=== PATIENT | female | born 1965 | race Caucasian/White ===

== ENCOUNTER 2017-05-28 11:05 | Day surgery (SDC) | payer OTHER ==
[~2017-05-28] VITALS: Ht 170.2 cm; Wt 116.2 kg
[~2017-05-28 11:05] MED LIST: ALBU90OI6; ALBU90OI61 INH; ANTI ANXIETY MED; BENZ100A PO; BISA5EC PO; CALCIUM WITH VIT D; CEFD300 PO; CLAR500 PO; CLIN300 PO; CLON.1 PO; CLON.2 PO; CODGUAEL PO; CONEST1.25 PO; CYCL10 PO; DIAZ5 PO; DOCU100 PO; DOXY100 PO; DULO30 PO; DULO60 PO; FEBU40TA PO; FERR325 PO; FISH1000 PO; FURO20 PO; FURO40 PO; GABA300 PO; GABA600 PO; GUAI600T33 PO; HYDACE5 PO; HYDGUAL120 PO; HYDPAM25; Hair, Skin & N1 EACH PO; IBUP800; IBUP800 PO; LEVFLO500 PO; LEVO750 PO; LORA2 PO; MAGNESIUM PO; METF500 PO; METO5 PO; METO5A; NAPR550 PO; NIAC500 PO; OXYACE5T PO; OXYB5 PO; OXYC10TA19 PO; OXYC5 PO; PARO20; POTA10T PO; POTCHL20ER PO; PRED20 PO; PSEU120ER PO; RANI150 PO; RXHYDACE PO; RXLORA1 PO; RXNAPNA550 PO; RXTRAM50 PO; SPACER IH; SPIR25 PO; TRAZ100 PO; TRAZ150T57 PO; VERA120ER; VERA240ER PO; VERA240ERA PO; VERA240ERB; VERA240ERB PO; [UNRECOGNIZED DRUG - OTHER]
== END 2017-05-28 12:58 | disposition home or self-care (01) ==
LOC: ORSCSDS 11:05
PROVIDERS: Anesthesiology
PROC: 3E0R33Z Introduction of Anti-inflammatory into Spinal Canal, Percutaneous Approach (ICD-10-PCS; principal; 2017-05-28 12:30)
DX: M96.1 Postlaminectomy syndrome, not elsewhere classified (principal); M54.16 Radiculopathy, lumbar region; G47.33 Obstructive sleep apnea (adult) (pediatric); I10 Essential (primary) hypertension; K21.9 Gastro-esophageal reflux disease without esophagitis; F41.9 Anxiety disorder, unspecified; J45.909 Unspecified asthma, uncomplicated; E78.00 Pure hypercholesterolemia, unspecified; E66.01 Morbid (severe) obesity due to excess calories; Z68.41 Body mass index [BMI] 40.0-44.9, adult; Z79.899 Other long term (current) drug therapy
CPT/HCPCS: J1040

== ENCOUNTER → 2019-04-13 | Outpatient (CLI) | payer OTHER ==
[2019-04-13 18:38] LABS: Albumin, Blood 3.8 g/dL (3.4-5.0); Anion Gap 11 mmol/L (6-16); Blood Urea Nitrogen 20 mg/dL (8-24); Bun/Creatinine Ratio 18.9 (12.0-20.0); CO2, Blood 26 mmol/L (21-32); Calcium, Blood 9.6 mg/dL (8.5-10.1); Chloride, Blood 105 mmol/L (98-108); Creatinine, Blood 1.06 mg/dL (0.40-1.00); Glomerular Filtration Rate 54 (60-); Glucose, Blood 84 mg/dL (70-99); Phosphorus, Blood 3.5 mg/dL (2.5-4.9); Potassium, Blood 3.9 mmol/L (3.5-5.5); Sodium, Blood 142 mmol/L (136-145)
== END | disposition home or self-care (01) ==
LOC: LAB SHORT 18:20 → LAB EV 18:20
PROVIDERS: Internal Medicine Nephrology
DX: E11.22 Type 2 diabetes mellitus with diabetic chronic kidney disease (principal); N18.3 Chronic kidney disease, stage 3 (moderate); D63.1 Anemia in chronic kidney disease; E11.21 Type 2 diabetes mellitus with diabetic nephropathy; N25.81 Secondary hyperparathyroidism of renal origin; E55.9 Vitamin D deficiency, unspecified; E78.00 Pure hypercholesterolemia, unspecified; R80.9 Proteinuria, unspecified
CPT/HCPCS: 36415; 80069; 85018

== ENCOUNTER → 2019-04-21 | Outpatient (CLI) | payer OTHER ==
[2019-04-21 21:35] LABS: Protein, Urine Quantitative 9.3 mg/dL (0.0-11.9)
[2019-04-21 21:38] LABS: Microalbumin, Urine Quant. 14.1 mg/L (0.000-20.000)
== END | disposition home or self-care (01) ==
LOC: LAB 15:22 → LAB SHORT 15:22
PROVIDERS: Internal Medicine Nephrology
DX: E11.22 Type 2 diabetes mellitus with diabetic chronic kidney disease (principal); N18.3 Chronic kidney disease, stage 3 (moderate); D63.1 Anemia in chronic kidney disease; D75.1 Secondary polycythemia; R80.9 Proteinuria, unspecified; E11.21 Type 2 diabetes mellitus with diabetic nephropathy; N25.81 Secondary hyperparathyroidism of renal origin; E55.9 Vitamin D deficiency, unspecified; E78.00 Pure hypercholesterolemia, unspecified
CPT/HCPCS: 81050; 82043; 82570; 84156

== ENCOUNTER → 2020-01-28 | Outpatient (CLI) | payer OTHER ==
[2020-01-28 19:16] LABS: Creatinine Urine 92.9 mg/dL (27.00-270.00); Protein, Urine Quantitative 5.3 mg/dL (0.0-11.9)
[2020-01-28 19:19] LABS: Microalbumin, Urine Quant. 6.41 mg/L (0.000-20.000)
== END | disposition home or self-care (01) ==
LOC: LAB 16:17 → LAB SHORT 16:17
PROVIDERS: Internal Medicine Nephrology
DX: N18.30 Chronic kidney disease, stage 3 unspecified (principal); D63.1 Anemia in chronic kidney disease; N25.81 Secondary hyperparathyroidism of renal origin; E55.9 Vitamin D deficiency, unspecified; E78.00 Pure hypercholesterolemia, unspecified; R76.9 Abnormal immunological finding in serum, unspecified; R94.5 Abnormal results of liver function studies; R94.6 Abnormal results of thyroid function studies
CPT/HCPCS: 81050; 82043; 82570; 84156

== ENCOUNTER 2020-09-03 13:41 | Inpatient (IN) | payer OTHER ==
[~2020-09-03] VITALS: Ht 170.2 cm; Wt 118.8 kg
[2020-09-03 14:26] LABS: BASOPHILS ABSOLUTE AUTO 0.04 K/mm3 (0.00-0.23); BASOPHILS PERCENT AUTO 0 % (0-2); EOSINOPHILS PERCENT AUTO 0 % (0-6); Hemoglobin 19.9 g/dL (11.5-16.0); IMMATURE GRAN ABSOLUTE AUTO 0.37 K/mm3 (0.00-0.10); IMMATURE GRAN PERCENT AUTO 2 % (0-1); LYMPHOCYTES ABSOLUTE AUTO 1.52 K/mm3 (0.84-5.20); LYMPHOCYTES PERCENT AUTO 6 % (21-46); MONOCYTES ABSOLUTE AUTO 1.67 K/mm3 (0.16-1.47); MONOCYTES PERCENT AUTO 7 % (4-13); Mean Corpuscular HGB 29.6 pg (26.0-34.0); Mean Corpuscular HGB Conc 35.2 g/dL (31.5-36.5); Mean Corpuscular Volume 84 fL (80-100); Mean Platelet Volume 9.3 fL (9.1-12.4); NEUTROPHILS ABSOLUTE AUTO 21.83 K/mm3 (1.96-9.15); NEUTROPHILS PERCENT AUTO 86 % (41-73); Platelet Count 394 K/mm3 (150-400); RDW Coefficient Variation 12.5 % (11.7-14.2); RDW Standard Deviation 38.1 fL (35.1-46.3); Red Blood Cell Count 6.72 M/mm3 (3.80-5.20); White Blood Cell Count 25.43 K/mm3 (4.00-11.30)
[2020-09-03 14:29] LABS: Hematocrit 56.6 % (33.0-51.0)
[2020-09-03 14:47] LABS: Albumin, Blood 3.7 g/dL (3.4-5.0); Albumin/Globulin Ratio 0.8 (0.8-1.8); Bilirubin, Total 1.1 mg/dL (0.1-1.0); Bun/Creatinine Ratio 26.8 (12.0-20.0); Creatinine, Blood 1.79 mg/dL (0.40-1.00); Globulin, Blood 4.9 g/dL (2.2-4.0); Potassium, Blood 4.2 mmol/L (3.5-5.5); Total Protein, Blood 8.6 g/dL (6.4-8.2)
[2020-09-03 14:48] LABS: BAND PERCENT MAN 2 % (0-8); BASOPHILS PERCENT MAN 0 % (0-2); EOSINOPHILS PERCENT MAN 0 % (0-6); LYMPHOCYTES ABSOLUTE MAN 1.01 K/mm3 (0.84-5.20); LYMPHOCYTES PERCENT MAN 4 % (21-46); MONOCYTES ABSOLUTE MAN 2.28 K/mm3 (0.16-1.47); MONOCYTES PERCENT MAN 9 % (4-13); NEUTROPHILS ABSOLUTE MAN 22.12 K/mm3 (1.96-9.15); SEG NEUTROPHILS PERCENT MAN 85 % (41-73); TOTAL CELLS COUNTED 100
[2020-09-03] MEDS ORDERED: LISI5 PO (15:59)
[2020-09-03] MEDS ORDERED: CALAN120 MG PO (16:00)
[2020-09-03] MEDS ORDERED: FEBUXOSTAT80 MG PO (16:00)
[2020-09-03] MEDS ORDERED: FUROSEMIDE20 MG PO (16:01)
[2020-09-03] MEDS ORDERED: PREGABALIN50 MG PO (16:01)
[2020-09-03 16:07] LABS: Source, Urine Clean Catch
[2020-09-03 16:11] LABS: Appearance, Urine Cloudy (Clear); Blood, Urine 4+ (Neg); Color, Urine Amber (P-Yellow); Glucose Qualitative, Urine Neg (Neg); Ketones, Urine 1+ (Neg); Leukocyte Esterase, Urine 1+ (Neg); Nitrite, Urine Neg (Neg); Protein, Urine 4+ (Neg); Urobilinogen, Urine 2+ (Normal)
[2020-09-03 16:17] LABS: Bilirubin, Urine 1+ (Neg)
[2020-09-03 16:20] LABS: Amorphous Heavy (0-Heavy)
[2020-09-03 16:21] LABS: Bacteria Few /hpf; Squamous Epithelial Cells Few /hpf (Few); Transitional Epithelial Cells Few /hpf (0-Rare)
--- NOTE | 2020-09-03 18:00 | NUR ---
Pt arrived to room. Dr. Rome in for surgical consult. Suction to low intermediate, draining clear yellow with moderate sediment. Dr instructs staff for water flushes to NG if sediment clogs the line. Pain level 10/10 prior to dilaudid 1mg dose; 1-2/10 on reassessment. No other complaints, daughter at bedside. Report given to eveline Donis RN.
[2020-09-03] MEDS ORDERED: FISH OIL 1,2001 EAC7 PO (19:50)
[2020-09-03] MEDS ORDERED: LORA10ER PO (19:57)
--- NOTE | 2020-09-03 20:35 | NUR ---
DR Michelle Rome called & requests covid 19 test, tele monitoring & repeat vital signs. DR Laboy had been in to see PT about SBO & PT had NG tube placed in ER. Placement was checked in ER with xray. Repeating vital signs now, ordered tele monitoring. NG has vent out & to low intermittant suction. Draining large amts of brown liquid with occasional thick clumps requiring flush to maintain patency. on 3rd cannister due to large amt of drainage. Alert & talkative. BP elevated 99.6 temp. PT had elevated troponin in ER & critical lactic acid of 3 , repeat troponin & lactic acid drawn. PT has hx of adhesion surgery, LAWRENCE on CPAP hyster & csection x 3 . DRawing covid 19 test now, DTR at bedside supportive. PT NPO
[2020-09-03 22:05] LABS: SARS-Cov-2 (COVID-19) PCR, MMC NEGATIVE (NEGATIVE)
[2020-09-04 04:34] LABS: BASOPHILS ABSOLUTE AUTO 0.02 K/mm3 (0.00-0.23); BASOPHILS PERCENT AUTO 0 % (0-2); EOSINOPHILS PERCENT AUTO 0 % (0-6); Hematocrit 47.9 % (33.0-51.0); Hemoglobin 16.7 g/dL (11.5-16.0); IMMATURE GRAN ABSOLUTE AUTO 0.07 K/mm3 (0.00-0.10); IMMATURE GRAN PERCENT AUTO 0 % (0-1); LYMPHOCYTES ABSOLUTE AUTO 1.52 K/mm3 (0.84-5.20); LYMPHOCYTES PERCENT AUTO 10 % (21-46); MONOCYTES ABSOLUTE AUTO 1.49 K/mm3 (0.16-1.47); MONOCYTES PERCENT AUTO 9 % (4-13); Mean Corpuscular HGB 29.9 pg (26.0-34.0); Mean Corpuscular HGB Conc 34.9 g/dL (31.5-36.5); Mean Corpuscular Volume 86 fL (80-100); Mean Platelet Volume 9.2 fL (9.1-12.4); NEUTROPHILS ABSOLUTE AUTO 12.71 K/mm3 (1.96-9.15); NEUTROPHILS PERCENT AUTO 81 % (41-73); Platelet Count 261 K/mm3 (150-400); RDW Coefficient Variation 12.7 % (11.7-14.2); RDW Standard Deviation 39.3 fL (35.1-46.3); Red Blood Cell Count 5.58 M/mm3 (3.80-5.20); White Blood Cell Count 15.81 K/mm3 (4.00-11.30)
[2020-09-04 04:57] LABS: Bun/Creatinine Ratio 28.6 (12.0-20.0); Calcium, Blood 8.9 mg/dL (8.5-10.1); Creatinine, Blood 1.61 mg/dL (0.40-1.00); Magnesium, Blood 2.1 mg/dL (1.6-2.4); Potassium, Blood 4.3 mmol/L (3.5-5.5); Troponin I 0.208 ng/mL (0.000-0.040)
--- NOTE | 2020-09-04 18:20 | NUR ---
SUMMARY PT RESTING IN BED WATCHING TV, DAUGHTER HAS BEEN AT THE BEDSIDE T/O THE DAY, SHE IS THE CAREGIVER AND SHE DOES ASSIST IN THE PT'S CARE, PT MED PER EMAR FOR PAIN AND NAUSEA, NG REMAINS TO LIS, DR ROBLES CAME TO SEE THE PT AND DOES NOT HAVE PLANS FOR SURGERY AT THIS TIME, PT UP TO THE COMMODE WITH 1P ASSIST, VSS, WILL CONTINUE TO MONITOR
--- NOTE | 2020-09-05 05:47 | NUR ---
PT continues with ng tube unvented per MD order npo except few ice chips. Medicated several times for abd pain & nausea with good effect. had to flush ng tube multiple times for thick brown gi contents. Hypertensive prn med given several times with prn iv med with mild helpful effect. DTR Ira continues at bedside due to PT needs caregiver assist with ADLS & communication.
--- NOTE | 2020-09-05 16:50 | NUR ---
Update 09/05/20 0106: Per chart review, no significant changes in condition. Pt. has NG tube in place and is NPO. No plan in place for discharge at this time.
--- NOTE | 2020-09-05 22:32 | NUR ---
DR COSTELLO called about no small bowell follow through results yet & the xray dept had said 1 view in AM required. Keep PT NG tube clamped due to contrast for SB follow through. PT was hypertensive has PRN rx to treat which was effective but he orders sq heparin & metoperol scheduled IV for hypertension. NG clamped , kpad & morphine 2 mg iv helpful for abd pain & compazine helpful for nausea. DTR at bedside aware PT may have lap exploratory due to lack of bowel function return. no growth on UA yet , has recieved rocephin IV x 2 days. Continues on IV fluids at 130 ml hr.
[2020-09-06 04:54] LABS: BASOPHILS ABSOLUTE AUTO 0.01 K/mm3 (0.00-0.23); BASOPHILS PERCENT AUTO 0 % (0-2); EOSINOPHILS PERCENT AUTO 0 % (0-6); Hematocrit 44.1 % (33.0-51.0); Hemoglobin 15.3 g/dL (11.5-16.0); IMMATURE GRAN ABSOLUTE AUTO 0.05 K/mm3 (0.00-0.10); IMMATURE GRAN PERCENT AUTO 1 % (0-1); LYMPHOCYTES ABSOLUTE AUTO 1.14 K/mm3 (0.84-5.20); LYMPHOCYTES PERCENT AUTO 13 % (21-46); MONOCYTES ABSOLUTE AUTO 0.79 K/mm3 (0.16-1.47); MONOCYTES PERCENT AUTO 9 % (4-13); Mean Corpuscular HGB 29.9 pg (26.0-34.0); Mean Corpuscular HGB Conc 34.7 g/dL (31.5-36.5); Mean Corpuscular Volume 86 fL (80-100); Mean Platelet Volume 9.3 fL (9.1-12.4); NEUTROPHILS ABSOLUTE AUTO 6.99 K/mm3 (1.96-9.15); NEUTROPHILS PERCENT AUTO 78 % (41-73); Platelet Count 242 K/mm3 (150-400); RDW Coefficient Variation 12.1 % (11.7-14.2); RDW Standard Deviation 38.5 fL (35.1-46.3); Red Blood Cell Count 5.11 M/mm3 (3.80-5.20); White Blood Cell Count 8.98 K/mm3 (4.00-11.30)
[2020-09-06 05:18] LABS: Albumin, Blood 2.8 g/dL (3.4-5.0); Albumin/Globulin Ratio 0.8 (0.8-1.8); Bilirubin, Total 0.7 mg/dL (0.1-1.0); Bun/Creatinine Ratio 25.2 (12.0-20.0); Calcium, Blood 8.5 mg/dL (8.5-10.1); Creatinine, Blood 1.11 mg/dL (0.40-1.00); Globulin, Blood 3.6 g/dL (2.2-4.0); Potassium, Blood 3.7 mmol/L (3.5-5.5); Total Protein, Blood 6.4 g/dL (6.4-8.2)
--- NOTE | 2020-09-06 06:45 | NUR ---
PT had 3 bowel movements large this AM. Off to xray SBFT. She has hypertension . PRN rx given & has scheduled antihypertensive. Ng continues clamped
--- NOTE | 2020-09-06 09:56 | NUR ---
DISCUSSED HTN WITH DR FLORES., HE TO ADJUST TO PO MEDS WHEN MARCUS LIQUID WELL. GIVE 20 MG HYDRALAZINE NOW.
--- NOTE | 2020-09-06 18:33 | NUR ---
PT HAD SEVERAL BM TODAY. DR OWENS NG REMOVED. DONE. PT MUCH PLEASED. [id number] IN ROOM FULL DAY TO ASSIST. PT AMBULATING TO BATHROOM WITH ASSISTANCE. STATES NAUSEA MUCH IMPROVED. ONLY GIVEN ZOFRAN ONCE TODAY. EATING CLEAR LIQUID DIET TODAY. NO NEW CONCERNS NOTED TODAY. BED IN LOW POSITION, CALL LITE IN REACH, CALLS APPROP
--- NOTE | 2020-09-07 06:33 | NUR ---
SHIFT SUMMARY A/O, ABLE TO MAKE NEEDS KNOWN. COOPERATIVE WITH CARE. CALLS AND ANSWERS QUESTIONS APPROPRIATELY. C/O PAIN/DISCOMFORT X1 TO ABDOMEN; MEDICATED PER EMAR. BP MORE CONTROLLED; HOWEVER HR INTO LOW 50s THIS AM. REMAINS ON TELE; WITH NO ACUTE EVENTS OVERNIGHT. CONTINUES TO TOLERATE CLEARS WELL. APPEARED TO REST WELL OVERNIGHT. DAUGHTER AT BEDSIDE. NO ACUTE CHANGES OVERNIGHT. BED REMAINS IN LOWEST POSITION. CALL LIGHT AND BELONGINGS WITHIN REACH. REPORT TO ONCOMING RN.
--- NOTE | 2020-09-07 16:28 | NUR ---
Update 09/07/20: Per chart review with Dr. Thakkar, pt. continues to improve. Very pleasant visit this afternoon with pt. and her daughter. Pt. has a strong support system at home with daughters. is disabled and their daughters are the primary care givers to both of them. Pt. in good spirits. Feeling much better and excited to continue to transition towards solid foods. We reviewed discharge plan including safety plan at home. Pt. denied any barriers to care at this time. Scheduled pt. with PCP 09/19/20 at 4:20 pm. Date noted on discharge letter. Pt. is likely to discharge within the next 24-48 hours. She was happy to prepare in anticipation. No further concerns. Update 09/06/20: Per chart review, patient's condition has improved. NG tube removed and BM x 3 noted. Clear liquid diet ordered. Discharge is likely within the next 48 hours.
--- NOTE | 2020-09-07 19:13 | NUR ---
PT DIET ADVANCED BY DR ROBLES TO FULL LIQUID AND ADAT. PT TOLERATED FULL LIQ WELL AND DIET ADVANCED TO SOFT FOR DINNER. NO ACUTE CHANGES NOTED THIS SHIFT, WILL CONTINUE TO MONITOR AND REPORT T ONCOMING RN
--- NOTE | 2020-09-08 06:04 | NUR ---
SHIFT SUMMARY ALERT, ABLE TO MAKE NEEDS KNOWN. COOPERATIVE WITH CARE. CALLS AND ANSWERS QUESTIONS APPROPRIATELY. NO C/O PAIN/DISCOMFORT. APPEARED TO REST WELL OVERNIGHT. CPAP @ HS /c BIOX ON. HYPERTENSIVE THIS AM; MEDICATED PER EMAR. APPEARED TO TOLERATE DIET ADVANCEMENT WELL. NO OTHER ACUTE CHANGES NOTED. DAUGHTER AT BEDSIDE THAT HELPS WITH CARE. BED REMAINS IN LOWEST POSITION. CALL LIGHT AND BELONGINGS WITHIN REACH. CONTINUE WITH CURRENT PLAN OF CARE. REPORT TO ONCOMING RN.
[2020-09-08] MEDS ORDERED: OMEP20ER PO (15:10)
[2020-09-08] MEDS ORDERED: AMLO10 PO (15:10)
[2020-09-08] MEDS ORDERED: LISI20 PO (15:10)
--- NOTE | 2020-09-08 16:38 | NUR ---
DISCHARGE DISCHARGE INSTRUCTIONS AND MEDICATION LIST REVIEWED WITH PT. CONFIRMED THAT PT HAD DISCHARGE/FOLLOW UP SHEET FROM [facility] FOR FOLLOW UP APPOINTMENTS. QUESTIONS/CONCERNS ANSWERED. PT AND HER DAUGHTER VERBALLY INDICATED UNDERSTANDING OF ALL INSTRUCIONS RECEIVED. ESCORTED OUT VIA W/C BY [facility]
== END 2020-09-08 16:11 | disposition home or self-care (01) | DRG 872 ==
LOC: ER 13:41 → MEDS 16:10 → ENPENDDIS 09-08 13:57 → MEDS 09-08 16:11
PROVIDERS: Internal Medicine; Physician Assistant; Surgery; ADMIT Internal Medicine
DX: A41.9 Sepsis, unspecified organism (principal); N39.0 Urinary tract infection, site not specified; I24.8 Other forms of acute ischemic heart disease; K56.600 Partial intestinal obstruction, unspecified as to cause; E87.2 Acidosis; Z20.822 Contact with and (suspected) exposure to COVID-19; Z87.891 Personal history of nicotine dependence; Z68.39 Body mass index [BMI] 39.0-39.9, adult; E66.01 Morbid (severe) obesity due to excess calories; E86.0 Dehydration; G47.33 Obstructive sleep apnea (adult) (pediatric); E87.5 Hyperkalemia; R32 Unspecified urinary incontinence; N18.30 Chronic kidney disease, stage 3 unspecified; I12.9 Hypertensive chronic kidney disease with stage 1 through stage 4 chronic kidney disease, or unspecified chronic kidney disease; R00.1 Bradycardia, unspecified
CPT/HCPCS: 36415; 74018; 74176; 74250; 80048; 80053; 81001; 83605; 83690; 83735; 84484; 85025; 87040; 87086; 93005; 93010; 94660; 94762; 96374; 96375; 96376; 99285-25; A9270; C9113; J0360; J0696; J0780; J1170; J1644; J2270; J2405; J7030; J7050; J7120; U0004

== ENCOUNTER 2022-04-13 17:29 | Inpatient (IN) | payer OTHER ==
[~2022-04-13] VITALS: Ht 160 cm; Wt 114.6 kg
[~2022-04-13 17:29] MED LIST changes: +AMLO10 PO; +CALAN120 MG PO; +FEBUXOSTAT80 MG PO; +FISH OIL 1,2001 EAC7 PO; +FUROSEMIDE20 MG PO; +LISI20 PO; +LISI5 PO; +LORA10ER PO; +OMEP20ER PO; +PREGABALIN50 MG PO
[2022-04-13 18:07] LABS: BASOPHILS ABSOLUTE AUTO 0.06 K/mm3 (0.00-0.23); BASOPHILS PERCENT AUTO 1 % (0-2); EOSINOPHILS ABSOLUTE AUTO 0.15 K/mm3 (0.00-0.68); EOSINOPHILS PERCENT AUTO 2 % (0-6); Hematocrit 42.6 % (33.0-51.0); Hemoglobin 15.1 g/dL (11.5-16.0); IMMATURE GRAN ABSOLUTE AUTO 0.05 K/mm3 (0.00-0.10); IMMATURE GRAN PERCENT AUTO 1 % (0-1); LYMPHOCYTES ABSOLUTE AUTO 2.62 K/mm3 (0.84-5.20); LYMPHOCYTES PERCENT AUTO 36 % (21-46); MONOCYTES ABSOLUTE AUTO 0.54 K/mm3 (0.16-1.47); MONOCYTES PERCENT AUTO 7 % (4-13); Mean Corpuscular HGB 30.1 pg (26.0-34.0); Mean Corpuscular HGB Conc 35.4 g/dL (31.5-36.5); Mean Corpuscular Volume 85 fL (80-100); NEUTROPHILS ABSOLUTE AUTO 3.94 K/mm3 (1.96-9.15); NEUTROPHILS PERCENT AUTO 54 % (41-73); RDW Coefficient Variation 12.4 % (11.7-14.2); RDW Standard Deviation 37.8 fL (35.1-46.3); Red Blood Cell Count 5.02 M/mm3 (3.80-5.20); White Blood Cell Count 7.36 K/mm3 (4.00-11.30)
[2022-04-13 18:14] LABS: Albumin, Blood 3.6 g/dL (3.4-5.0); Albumin/Globulin Ratio 1.1 (0.8-1.8); Bilirubin, Total 0.7 mg/dL (0.1-1.0); Bun/Creatinine Ratio 14.8 (12.0-20.0); Calcium, Blood 9.3 mg/dL (8.5-10.1); Creatinine, Blood 1.15 mg/dL (0.40-1.00); Globulin, Blood 3.3 g/dL (2.2-4.0); Potassium, Blood 3.7 mmol/L (3.5-5.5); Total Protein, Blood 6.9 g/dL (6.4-8.2)
[2022-04-13 18:26] LABS: Mean Platelet Volume 9.6 fL (9.1-12.4); Platelet Count 224 K/mm3 (150-400)
[2022-04-13] MEDS ORDERED: ALDACTONE25 MG PO (18:36)
[2022-04-13] MEDS ORDERED: TIZANIDINE HCL2 MG PO (18:37)
[2022-04-13 21:05] LABS: Magnesium, Blood 1.7 mg/dL (1.6-2.4); Phosphorus, Blood 3.8 mg/dL (2.5-4.9); Thyroid Stimulating Hormone 0.498 uIU/mL (0.360-4.800)
[2022-04-14 06:01] LABS: BASOPHILS ABSOLUTE AUTO 0.03 K/mm3 (0.00-0.23); BASOPHILS PERCENT AUTO 0 % (0-2); EOSINOPHILS ABSOLUTE AUTO 0.07 K/mm3 (0.00-0.68); EOSINOPHILS PERCENT AUTO 1 % (0-6); Hemoglobin 13.3 g/dL (11.5-16.0); IMMATURE GRAN ABSOLUTE AUTO 0.01 K/mm3 (0.00-0.10); IMMATURE GRAN PERCENT AUTO 0 % (0-1); LYMPHOCYTES ABSOLUTE AUTO 2.57 K/mm3 (0.84-5.20); LYMPHOCYTES PERCENT AUTO 35 % (21-46); MONOCYTES ABSOLUTE AUTO 0.63 K/mm3 (0.16-1.47); MONOCYTES PERCENT AUTO 9 % (4-13); Mean Corpuscular Volume 86 fL (80-100); Mean Platelet Volume 9.8 fL (9.1-12.4); NEUTROPHILS ABSOLUTE AUTO 4.03 K/mm3 (1.96-9.15); NEUTROPHILS PERCENT AUTO 55 % (41-73); Platelet Count 220 K/mm3 (150-400); RDW Coefficient Variation 12.5 % (11.7-14.2); RDW Standard Deviation 39.1 fL (35.1-46.3); Red Blood Cell Count 4.43 M/mm3 (3.80-5.20); White Blood Cell Count 7.34 K/mm3 (4.00-11.30)
[2022-04-14 06:20] LABS: Albumin, Blood 2.9 g/dL (3.4-5.0); Albumin/Globulin Ratio 0.9 (0.8-1.8); Bilirubin, Total 0.5 mg/dL (0.1-1.0); Bun/Creatinine Ratio 19.6 (12.0-20.0); Calcium, Blood 8.6 mg/dL (8.5-10.1); Creatinine, Blood 1.07 mg/dL (0.40-1.00); Globulin, Blood 3.2 g/dL (2.2-4.0); Potassium, Blood 3.8 mmol/L (3.5-5.5); Total Protein, Blood 6.1 g/dL (6.4-8.2)
[2022-04-16] MEDS ORDERED: FEBU40TA PO (08:16)
[2022-04-16] MEDS ORDERED: THERA-D2000 UNIT PO (08:17)
[2022-04-16] MEDS ORDERED: VITAMIN B-122000 MC1 PO (08:18)
[2022-04-16] MEDS ORDERED: CRANBERRY500 M1 PO (08:18)
[2022-04-16] MEDS ORDERED: CEPH500 PO (12:44)
[2022-04-16] MEDS ORDERED: HYDR1TAB94 PO (12:44)
== END 2022-04-16 14:41 | disposition home or self-care (01) | DRG 243 ==
LOC: ER 17:29 → PCU 19:14 → MEDS 19:14 → PCU 04-15 14:43 → ENPENDDIS 04-16 10:49 → PCU 04-16 14:41
PROVIDERS: Emergency Medicine; Family Medicine; ADMIT Internal Medicine
PROC: 5A09357 Assistance with Respiratory Ventilation, Less than 24 Consecutive Hours, Continuous Positive Airway Pressure (ICD-10-PCS; 2022-04-14)
PROC: 0JH606Z Insertion of Pacemaker, Dual Chamber into Chest Subcutaneous Tissue and Fascia, Open Approach (ICD-10-PCS; principal; 2022-04-15)
PROC: 02H63JZ Insertion of Pacemaker Lead into Right Atrium, Percutaneous Approach (ICD-10-PCS; 2022-04-15)
PROC: 02HK3JZ Insertion of Pacemaker Lead into Right Ventricle, Percutaneous Approach (ICD-10-PCS; 2022-04-15)
DX: I49.5 Sick sinus syndrome (principal); I13.0 Hypertensive heart and chronic kidney disease with heart failure and stage 1 through stage 4 chronic kidney disease, or unspecified chronic kidney disease; Z68.41 Body mass index [BMI] 40.0-44.9, adult; I50.32 Chronic diastolic (congestive) heart failure; I44.0 Atrioventricular block, first degree; G89.29 Other chronic pain; K21.9 Gastro-esophageal reflux disease without esophagitis; M10.9 Gout, unspecified; I95.9 Hypotension, unspecified; F99 Mental disorder, not otherwise specified; I45.5 Other specified heart block; N39.41 Urge incontinence; G47.33 Obstructive sleep apnea (adult) (pediatric); E11.42 Type 2 diabetes mellitus with diabetic polyneuropathy; E11.22 Type 2 diabetes mellitus with diabetic chronic kidney disease; E66.01 Morbid (severe) obesity due to excess calories; N18.30 Chronic kidney disease, stage 3 unspecified; I77.810 Thoracic aortic ectasia; E78.5 Hyperlipidemia, unspecified; M48.061 Spinal stenosis, lumbar region without neurogenic claudication; M51.9 Unspecified thoracic, thoracolumbar and lumbosacral intervertebral disc disorder; F32.A Depression, unspecified; F12.20 Cannabis dependence, uncomplicated; Z99.81 Dependence on supplemental oxygen; Z71.51 Drug abuse counseling and surveillance of drug abuser; Z79.01 Long term (current) use of anticoagulants; Z79.811 Long term (current) use of aromatase inhibitors; Z86.79 Personal history of other diseases of the circulatory system; Z90.49 Acquired absence of other specified parts of digestive tract; Z90.710 Acquired absence of both cervix and uterus; Z98.890 Other specified postprocedural states; Z79.899 Other long term (current) drug therapy; Z87.891 Personal history of nicotine dependence; Z88.2 Allergy status to sulfonamides; Z88.0 Allergy status to penicillin; Z88.8 Allergy status to other drugs, medicaments and biological substances; Z91.048 Other nonmedicinal substance allergy status; Z91.040 Latex allergy status
CPT/HCPCS: 33208; 36415; 71045; 71046; 76937; 80053; 83735; 83880; 84100; 84443; 84484; 85025; 93005; 93010; 94660; 94762; 96372; 99152; 99153; 99285-25; A9270; C1785; C1894; C1898; G0378; J1644; J1650; J2250; J3010; J3370; J7030; J7040

== ENCOUNTER → 2022-04-23 | Outpatient (CLI) | payer OTHER ==
[~2022-04-23] MED LIST changes: +ALDACTONE25 MG PO; +CEPH500 PO; +CRANBERRY500 M1 PO; +HYDR1TAB94 PO; +THERA-D2000 UNIT PO; +TIZANIDINE HCL2 MG PO; +VITAMIN B-122000 MC1 PO
== END ==
LOC: LAB 12:25 → LAB SHORT 12:25
DX: R31.0 Gross hematuria (principal)
CPT/HCPCS: 87077; 87086; 87186

== ENCOUNTER → 2023-01-27 | Outpatient (CLI) | payer OTHER ==
[~2023-01-27] MED LIST changes: +ELIQUIS5 M2 PO; +FLUT.05NI; +HYDHCL25
[2023-01-29 10:44] LABS: Candida species (DNA Probe) Negative (NEGATIVE); G. vaginalis (DNA Probe) Negative (NEGATIVE); T. vaginalis (DNA Probe) Negative (NEGATIVE)
[2023-01-29 16:08] LABS: HPV 16 Negative (Negative); HPV 18 Negative (Negative); HPV OTHER HR TYPES Negative (Negative)
== END ==
LOC: LAB 16:00 → LAB SHORT 16:00
PROVIDERS: Family Medicine
DX: Z01.419 Encounter for gynecological examination (general) (routine) without abnormal findings (principal)
CPT/HCPCS: 87480; 87510; 87624; 87660; G0145

== ENCOUNTER 2023-01-30 06:19 | Day surgery (SDC) | payer OTHER ==
[~2023-01-30] VITALS: Ht 167.6 cm; Wt 117.0 kg
[~2023-01-30 06:19] MED LIST changes: -ELIQUIS5 M2 PO; -FLUT.05NI; -HYDHCL25
[2023-01-30] MEDS ORDERED: ELIQUIS5 M2 PO (06:56)
[2023-01-30] MEDS ORDERED: HYDHCL25 (06:57)
[2023-01-30] MEDS ORDERED: DOCU100 PO (06:58)
[2023-01-30] MEDS ORDERED: FLUT.05NI (06:59)
--- NOTE | 2023-01-30 08:00 | NUR ---
01/30/23 0800 Merry Haines TIME OUT WITH DR ZULETA PERFOMED AT BEDSIDE CONFIRMING PATIENT IS SCHEDULED AND CONSENTED FOR L SIDED ENDOSCOPIC CARPAL TUNNEL RELEASE. VERSED 1MG IV X1 GIVEN PER ORDER FROM DR ZULETA
--- NOTE | 2023-01-30 08:20 | NUR ---
01/30/23 0820 Wisam Cotter PT STATES SHE CAN NOT LAY ARM FLAT D/T ELBOW FRACTURE. PT ON LEFT SIDE, PILLOW BEHIND BACK, STERILE BUMP UNDER ARM. PT STATES THIS IS COMFORTABLE FOR HER.
[2023-01-30 08:33] VITALS: BP 98/57
--- NOTE | 2023-01-30 09:07 | NUR ---
01/30/23 0907 STANISLAV FERRARI IV REMOVED. WNL. CANNULA INTACT. MARCUS WELL
== END 2023-01-30 09:05 | disposition home or self-care (01) ==
LOC: ORSCSDS 06:19
PROVIDERS: Orthopaedic Surgery
PROC: 01N54ZZ Release Median Nerve, Percutaneous Endoscopic Approach (ICD-10-PCS; principal; 2023-01-30 08:00)
DX: G56.02 Carpal tunnel syndrome, left upper limb (principal); G47.33 Obstructive sleep apnea (adult) (pediatric); E11.9 Type 2 diabetes mellitus without complications; I10 Essential (primary) hypertension; J45.909 Unspecified asthma, uncomplicated; Z95.0 Presence of cardiac pacemaker; Z87.891 Personal history of nicotine dependence; Z79.899 Other long term (current) drug therapy
CPT/HCPCS: 82947; J2250; J7120

== ENCOUNTER 2023-12-30 08:32 | Day surgery (SDC) | payer OTHER ==
[~2023-12-30] VITALS: Ht 170.2 cm; Wt 127.2 kg
[~2023-12-30 08:32] MED LIST changes: +ELIQUIS5 M2 PO; +FLUT.05NI; +HYDHCL25; +Lactated Ringer's 1,000 ML IV SCH
--- NOTE | 2023-12-30 09:45 | NUR ---
PT TO DAY SURGERY FOR COLONOSCOPY, CHART REVIEWED, PLAN OF CARE REVIEWED AND DISCUSSED WITH PT. QUESTIONS ANSWERED.PT DAUGHTER AT BEDSIDE.
[2023-12-30 09:49] VITALS: BP 116/97
[2023-12-30] MEDS ORDERED: Midazolam HCl 1MG / ML 2ML Vial ONE (10:36)
[2023-12-30] MEDS ORDERED: FentaNYL Citrate 50 MCG/ML 2 ML Injection ONE (10:37)
[2023-12-30] MEDS ORDERED: propofoL 40 ML IV ONE (10:37)
--- NOTE | 2023-12-30 10:47 | NUR ---
12/30/23 1047 Jossie Holt MONITOR INTACT WITH CONTINUOUS PULSE OXIMETRY, CONTINUOUS END TITAL CO2, AND INTERMITTENT BLOOD PRESSURE AND EKG. ANESTHESIA PER DR. BECERRA.
[2023-12-30 11:15] VITALS: BP 108/56
--- NOTE | 2023-12-30 11:15 | NUR ---
PT TO DAY SURGERY STEP DOWN FROM COLONOSCOPY; BEDSIDE REPORT RECEIVED. PT IS AWAKE, ALERT AND ORIENTED; ABLE TO MOVE SELF IN BED. VSS. NO COMPLAINTS.
--- NOTE | 2023-12-30 11:22 | NUR ---
TOLERATING PO FLUIDS
[2023-12-30 11:30] VITALS: BP 120/66
--- NOTE | 2023-12-30 11:32 | NUR ---
Discharge instructions reviewed with patient. Patient verbalizes understanding. Copy given to patient to take home. Patient States Post-Procedure ride home has been arranged.
--- NOTE | 2023-12-30 11:44 | NUR ---
Patient up to Ambulate independently. Gait steady. Discharged via wheelchair to private car for ride home.
== END 2023-12-30 11:45 | disposition home or self-care (01) ==
LOC: ORSCMMR 08:32 → ORD 10:00 → ORSCMMR 10:00
PROVIDERS: Internal Medicine Gastroenterology
PROC: 0DBL8ZX Excision of Transverse Colon, Via Natural or Artificial Opening Endoscopic, Diagnostic (ICD-10-PCS; principal; 2023-12-30 10:00)
PROC: 0DBN8ZX Excision of Sigmoid Colon, Via Natural or Artificial Opening Endoscopic, Diagnostic (ICD-10-PCS; principal; 2023-12-30 10:00)
DX: R19.5 Other fecal abnormalities (principal); D12.3 Benign neoplasm of transverse colon; K63.5 Polyp of colon; Z80.0 Family history of malignant neoplasm of digestive organs; I48.0 Paroxysmal atrial fibrillation; G47.33 Obstructive sleep apnea (adult) (pediatric); E11.9 Type 2 diabetes mellitus without complications; I10 Essential (primary) hypertension; F32.A Depression, unspecified; K21.9 Gastro-esophageal reflux disease without esophagitis; E66.01 Morbid (severe) obesity due to excess calories; Z68.41 Body mass index [BMI] 40.0-44.9, adult; Z95.0 Presence of cardiac pacemaker; Z79.01 Long term (current) use of anticoagulants; Z79.899 Other long term (current) drug therapy; Z87.891 Personal history of nicotine dependence
CPT/HCPCS: 82947; 88305; J2250; J2704; J3010; J7120

== ENCOUNTER → 2024-03-01 | Outpatient (CLI) | payer OTHER ==
[~2024-03-01] MED LIST changes: -Lactated Ringer's 1,000 ML IV SCH
== END ==
LOC: LAB SHORT 12:00 → LAB 12:00
DX: N39.0 Urinary tract infection, site not specified (principal)
CPT/HCPCS: 87086

== ENCOUNTER → 2024-12-10 | Outpatient (CLI) | payer OTHER ==
[2024-12-10 17:10] LABS: BASOPHILS ABSOLUTE AUTO 0.05 K/mm3 (0.00-0.23); BASOPHILS PERCENT AUTO 1 % (0-2); EOSINOPHILS ABSOLUTE AUTO 0.07 K/mm3 (0.00-0.68); EOSINOPHILS PERCENT AUTO 1 % (0-6); Hematocrit 41.0 % (33.0-51.0); Hemoglobin 14.5 g/dL (11.5-16.0); IMMATURE GRAN ABSOLUTE AUTO 0.02 K/mm3 (0.00-0.10); IMMATURE GRAN PERCENT AUTO 0 % (0-1); LYMPHOCYTES ABSOLUTE AUTO 1.85 K/mm3 (0.84-5.20); LYMPHOCYTES PERCENT AUTO 18 % (21-46); MONOCYTES ABSOLUTE AUTO 0.71 K/mm3 (0.16-1.47); MONOCYTES PERCENT AUTO 7 % (4-13); Mean Corpuscular HGB Conc 35.4 g/dL (31.5-36.5); Mean Corpuscular Volume 84 fL (80-100); NEUTROPHILS ABSOLUTE AUTO 7.88 K/mm3 (1.96-9.15); NEUTROPHILS PERCENT AUTO 74 % (41-73); NRBC ABSOLUTE 0.00 K/mm3 (0.00-0.02); NRBC Auto 0.0 /100 WBC (0.0-0.2); Platelet Count 251 K/mm3 (150-400); RDW Coefficient Variation 13.3 % (11.7-14.2); RDW Standard Deviation 40.4 fL (35.1-46.3)
[2024-12-10 17:22] LABS: Alanine Aminotransfer (ALT/SGP 48.0 U/L (12-78); Albumin, Blood 3.9 g/dL (3.4-5.0); Albumin/Globulin Ratio 1.0 (0.8-1.8); Anion Gap 13.0 mmol/L (3-11); Aspartate Aminotrans (AST/SGOT 27.0 U/L (12-37); Bilirubin, Total 0.9 mg/dL (0.1-1.0); Blood Urea Nitrogen 18.0 mg/dL (8-24); CO2, Blood 27.0 mmol/L (21-32); Calcium, Blood 9.4 mg/dL (8.5-10.1); Chloride, Blood 104.0 mmol/L (98-108); Creatinine, Blood 1.07 mg/dL (0.40-1.00); Globulin, Blood 3.9 g/dL (2.2-4.0); Glucose, Blood 119.0 mg/dL (70-99); Magnesium, Blood 1.6 mg/dL (1.6-2.4); Potassium, Blood 4.0 mmol/L (3.5-5.5); Sodium, Blood 140.0 mmol/L (136-145); Total Protein, Blood 7.8 g/dL (6.4-8.2)
== END ==
LOC: LAB 17:04 → LAB SHORT 17:04
PROVIDERS: Emergency Medicine
DX: R31.9 Hematuria, unspecified (principal)
CPT/HCPCS: 80053; 83735; 85025; 87077; 87086; 87186